=== PATIENT | female | born 1995 | race African-American/Black ===

== ENCOUNTER → 2017-12-25 | Outpatient (CLI) | payer MEDICAID ==
--- NOTE | 2017-12-25 17:31 | Diagnostic Imaging Report ---
PROCEDURE: US OB SINGLE FETUS <14 WKS. TECHNIQUE: Multiple real-time grayscale images were obtained over the gravid uterus in various projections. INDICATION: Uncertain dates. There are no prior studies available for comparison. FINDINGS: There is a gestational sac within the uterus containing a single live fetus. heart motion was noted and a rate of 174 bpm was recorded. The crown-rump length suggests the estimated gestational age is 10 weeks 4 days +/- 1 week. There are no obvious abnormalities evident. The amniotic fluid volume is within normal limits. At this time, it is not certain where the placenta will develop. There is no pelvic mass or free fluid collection noted. Neither ovary is identified. IMPRESSION: 1. There is a single live intrauterine of approximately 10 weeks 4 days gestation +/- 1 week. The EDC is July 19, 2018. 2. There are no obvious abnormalities identified. If a more sensitive evaluation of the anatomy is desired, then a follow-up examination in 10-12 weeks should be obtained. 3. Neither ovary is visualized. Dictated by: Dictated on workstation # [id number]
== END ==
LOC: RAD 12:13
PROVIDERS: ATTEND Family Medicine
DX: Z34.91 Encounter for supervision of normal pregnancy, unspecified, first trimester (principal); Z3A.10 10 weeks gestation of pregnancy
CPT/HCPCS: 76801

== ENCOUNTER 2018-07-26 19:03 | Inpatient (IN) | payer BC, MEDICAID ==
[~2018-07-26] VITALS: Ht 154.9 cm; Wt 88.5 kg
--- NOTE | 2018-07-26 19:00 | NUR ---
CARITO GRAY presented to unit via ambulation from ED, accompanied by family, with c/o INDUCTION. CARITO GRAY weighed, gowned, voided, and to bed. EFHM and TOCO applied, VS taken. CARITO GRAY oriented to bed controls, call light, TV, heat, and A/C controls.
[2018-07-26 19:08] VITALS: BP 123/81
[2018-07-26] MEDS ORDERED: D5 LR IV SOLUTION 1,000 ML IV ONE (19:18)
--- OUTSIDE RECORDS SUMMARY | 2018-07-26 19:19 | XMS REPORT ---
Author Author NYASIA FIERRO Organization [facility] Address [address] [place] [address] Care Team Providers Care Roll Up Helper Name Role Phone NYASIA FIERRO Unavailable PROBLEMS Type Condition ICD9-CM Code [id number] Code Onset Dates Condition Status SNOMED Code Problem Gingivitis K05.10 Active 90538303 ALLERGIES No Information ENCOUNTERS Encounter Location Date Diagnosis [facility] [id number] [place] [address] 19376- 9970 Jul, [facility] [id number] [place] [address] 13131- 2965 Jul, [facility] [id number] [place] [address] 42382- 3744 Jun, [facility] [id number] [place] [address] 54255- 8206 Jun, [facility] [id number] [place] [address] 69568- 0609 May, [facility] [address] [address] 9[address] May, [facility] [address] [place] [address] 08835- 1117 Apr, [facility] [address] [address] 7086 Mar, [facility] [id number] [place] [address] 81732- 5251 Mar, [facility] [address] [address] 9994 Mar, [facility] [id number] [place] [address] 41739- 9593 Feb, Second trimester Z34.92 and 18 weeks gestation of Z3A.18 [facility] [id number] [place] [address] [id number] Feb, Caries K02.9 and Dental examination Z01.20 [facility] [id number] [place] [address] 61111- 6196 Feb, 18 weeks gestation of Z3A.18 and Second trimester Z34.92 [place] [id number] [place] [address] 51882- 7891 Jan, Encounter for immunization Z23 [address] [address]26- 3970 Jan, 14 weeks gestation of Z3A.14 ; Second trimester Z34.92 ; Chlamydial infection A74.9 and Other maternal infectious and parasitic diseases complicating , second trimester O98.812 [place] [id number] [place] [address] 30941- 5678 14 Dec, 2017 [place] [address] 51584- 4349 Dec, 9 weeks gestation of Z3A.09 ; Normal , first Z34.00 ; First trimester Z34.91 and Trichimoniasis A59.9 [place] [id number] [place] [address] 08962- 5150 Dec, Gingivitis K05.10 [place] [id number] [place] [address] 40358- 2150 Dec, Screening, anemia, deficiency, iron Z13.0 [place] [id number] [place] [address] 99509- 3850 Nov, [place] [id number] [place] [address] 01783- 5770 Nov, [place] [address] 23466- 5546 Nov, [facility] [address] [facility] [id number] [place] [address] Nov, IMMUNIZATIONS No Known Immunizations SOCIAL HISTORY Never Assessed REASON FOR VISIT [employer] PLAN OF CARE VITAL SIGNS MEDICATIONS Unknown Medications RESULTS No Results PROCEDURES No Known procedures INSTRUCTIONS MEDICATIONS ADMINISTERED No Known Medications MEDICAL (GENERAL) HISTORY Type Description Date Surgical History No Surgical history information
--- OUTSIDE RECORDS SUMMARY | 2018-07-26 19:19 | XMS REPORT ---
Author Author PATRICIA LOPEZ [facility] Address Unknown Care Team Providers Care Procedures Analyst Name Role Phone PATRICIA LOPEZ Unavailable PROBLEMS Type Condition ICD9-CM Code PAC00-OL Code Onset Dates Condition Status SNOMED Code Problem Gingivitis K05.10 Active 79819240 ALLERGIES No Known Allergies ENCOUNTERS Encounter Location Date Diagnosis [facility] [id number] [place] [address] 84483- 3771 Jul, [facility] [id number] [place] [address] 32273- 1194 Jul, [facility] [id number] [place] [address] 21559- 7884 Jun, [facility] [id number] [place] [address] 74830- 4028 Jun, [facility] [id number] [place] [address] 98325- 1065 May, [facility] [id number] [place] [address] 27972- 6393 May, [facility] [id number] [place] [address] 81735- 2811 Apr, [facility] [id number] [place] [address] 82992- 5943 Mar, [facility] [id number] [place] [address] 35027- 4837 16 Feb, 2018 Second trimester Z34.92 and 18 weeks gestation of Z3A.18 [facility] [address] [phone] 13 Feb, 2018 Caries K02.9 and Dental examination Z01.20 [place] [address] [place] [address] 88730- 8565 13 Feb, 2018 18 weeks gestation of Z3A.18 and Second trimester Z34.92 [place] [id number] [place] [address] 89219- 6016 16 Jan, 2018 Encounter for immunization Z23 [place] [address] 76805- 2418 16 Jan, 2018 14 weeks gestation of Z3A.14 ; Second trimester Z34.92 ; Chlamydial infection A74.9 and Other maternal infectious and parasitic diseases complicating , second trimester O98.812 [place] [id number] [place] [address] 87751- 6320 14 Dec, 2017 [place] [id number] [place] [address] 67499- 2747 10 Dec, 2017 9 weeks gestation of Z3A.09 ; Normal , first Z34.00 ; First trimester Z34.91 and Trichimoniasis A59.9 [place] [id number] [place] [address] 23150- 8428 10 Dec, 2017 Gingivitis K05.10 [place] [id number] [place] [address] 56596- 5670 10 Dec, 2017 Screening, anemia, deficiency, iron Z13.0 [place] [id number] [place] [address] 00843- 3530 Nov, [place] [id number] [place] [address] 09136- 8836 Nov, [place] [address] 79813- 2099 Nov, [place] [id number] [place] [address] 70566- 1766 Nov, IMMUNIZATIONS No Known Immunizations SOCIAL HISTORY Never Assessed REASON FOR VISIT JOSE R/twest PLAN OF CARE Activity Details Follow Up 6 Months Reason:recall VITAL SIGNS Height 62 in 2018-02-16 Blood pressure systolic 112 mmHg 2018-02-16 Blood pressure diastolic 60 mmHg 2018-02-16 MEDICATIONS Medication Instructions Dosage Frequency Start Date End Date Duration Status 28-0.8 MG Orally daily 1 24h Dec, Active RESULTS No Results PROCEDURES Procedure Date Ordered Result Body Site COMP ORAL EVALUATION - NEW/EST PT Feb 16, 2018 RESIN COMPOS - 2 SURFACES POSTERIOR Feb 16, 2018 RESIN COMPOS - 3 SURFACES POSTERIOR Feb 16, 2018 INSTRUCTIONS MEDICATIONS ADMINISTERED No Known Medications MEDICAL (GENERAL) HISTORY Type Description Date Surgical History No Surgical history information
--- OUTSIDE RECORDS SUMMARY | 2018-07-26 19:20 | XMS REPORT ---
Author Author NYASIA FIERRO Organization [facility] Address [address] [place] [address] Care Team Providers Care Miter Operator Name Role Phone NYASIA FIERRO Unavailable PROBLEMS Type Condition ICD9-CM Code NBM28-FK Code Onset Dates Condition Status SNOMED Code Problem Gingivitis K05.10 Active 04629481 ALLERGIES No Information ENCOUNTERS Encounter Location Date Diagnosis [place] [address] 71075- 7431 Jan, [place] [address] 82981- 1229 Dec, [place] [address] 66915- 1166 Dec, 9 weeks gestation of Z3A.09 ; Normal , first Z34.00 ; First trimester Z34.91 and Trichimoniasis A59.9 [place] [address] 94161- 6779 Dec, Gingivitis K05.10 [place] [id number] [place] [address] 01313- 6660 Dec, Screening, anemia, deficiency, iron Z13.0 [place] [address] [id number] [place] [address] 93658- 9858 Nov, [place] [address] 77780- 0153 Nov, [place] [address] 64952- 5120 Nov, [place] [address] 81777- 7220 Nov, IMMUNIZATIONS No Known Immunizations SOCIAL HISTORY Never Assessed REASON FOR VISIT [facility] Hemoglobin PLAN OF CARE VITAL SIGNS MEDICATIONS Unknown Medications RESULTS Name Result Date Reference Range HEMOGLOBIN (IN HOUSE) 2017-12-14 HEMOGLOBIN 13.4 11.5 - 16 gm/dL Lot # [id number] Exp date 21 May 2018 PROCEDURES Procedure Date Ordered Result Body Site HEMOGLOBIN Dec 14, 2017 INSTRUCTIONS MEDICATIONS ADMINISTERED No Known Medications
--- OUTSIDE RECORDS SUMMARY | 2018-07-26 19:20 | XMS REPORT ---
Author Author NYASIA FIERRO [facility] Address [address] [place] [address] Care Team Providers Care Castings Drafter Name Role Phone NYASIA FIERRO Unavailable PROBLEMS ALLERGIES No Information ENCOUNTERS IMMUNIZATIONS No Known Immunizations SOCIAL HISTORY No smoking Hx information available REASON FOR VISIT PLAN OF CARE VITAL SIGNS MEDICATIONS Unknown Medications RESULTS No Results PROCEDURES No Known procedures INSTRUCTIONS MEDICATIONS ADMINISTERED No Known Medications
--- OUTSIDE RECORDS SUMMARY | 2018-07-26 19:20 | XMS REPORT ---
Author Author NYASIA FIERRO Organization [facility] Address [address] [place] [address] Care Team Providers Care Turner Off Name Role Phone NYASIA FIERRO Unavailable PROBLEMS Type Condition ICD9-CM Code ZXM96-XJ Code Onset Dates Condition Status SNOMED Code Problem Gingivitis K05.10 Active [id number] ALLERGIES No Information ENCOUNTERS Encounter Location Date Diagnosis [facility] [id number] [place] [address] 58084- 6170 Jul, [facility] [id number] [place] [address] 56809- 7045 Jul, [facility] [id number] [place] [address] 26406- 9202 Jun, [facility] [id number] [place] [address] 35981- 2935 Jun, [facility] [id number] [place] [address] 25181- 2104 May, [facility] [address], [place] [address]- 3320 May, [facility] [id number] [place] [address] 24443- 4178 Apr, [facility] [address] [place] [address] 27193- 2917 Mar, [facility] [id number] [place] [address] [id number] Feb, [facility] [address] [place] [address] 11535- 6752 Feb, [facility] [id number] [place] [address] 17693- 2122 Jan, Encounter for immunization Z23 [place] [id number] [place] [address] 10188- 7451 16 Jan, 2018 14 weeks gestation of Z3A.14 ; Second trimester Z34.92 ; Chlamydial infection A74.9 and Other maternal infectious and parasitic diseases complicating , second trimester O98.812 [place] [id number] [place] [address] 44254- 6635 14 Dec, 2017 [place] [id number] [place] [address] 82369- 9915 10 Dec, 2017 9 weeks gestation of Z3A.09 ; Normal , first Z34.00 ; First trimester Z34.91 and Trichimoniasis A59.9 [place] [id number] [place] [address] 50349- 7160 10 Dec, 2017 Gingivitis K05.10 [place] [id number] [place] [address] 58229- 0432 10 Dec, 2017 Screening, anemia, deficiency, iron Z13.0 [place] [id number] [place] [address] 15616- 7561 Nov, [place] [id number] [place] [address] 47581- 1029 Nov, [place] [id number] [place] [address] 30047- 1531 Nov, [place] [id number] [place] [address] 29278- 3695 Nov, IMMUNIZATIONS No Known Immunizations SOCIAL HISTORY Never Assessed REASON FOR VISIT OB f/u (Centering) PLAN OF CARE Activity Details Follow Up 4 Weeks Reason: Pending Test SYPHILIS (STATE) Pending Test HIV (STATE) Pending Test HEP B SURFACE ANTIGEN (STATE) Pending Test CBC Pending Test BLOOD TPYE/RH FACTOR Pending Test ANTIBODY SCREEN Pending Test TSH Pending Test RUBELLA IMMUNE STATUS VITAL SIGNS Weight 172.0 lbs 2018-01-19 Blood pressure systolic 109 mmHg 2018-01-19 Blood pressure diastolic 74 mmHg 2018-01-19 MEDICATIONS Medication Instructions Dosage Frequency Start Date End Date Duration Status 28-0.8 MG Orally daily 1 24h 10 Dec, 2017 Active RESULTS No Results PROCEDURES Procedure Date Ordered Result Body Site COMPLETE CBC W/AUTO DIFF WBC Jan 19, 2018 ASSAY THYROID STIM HORMONE Jan 19, 2018 No Charge Jan 19, 2018 VENIPUNCT, ROUTINE* Jan 19, 2018 RUBELLA ANTIBODY Jan 19, 2018 RBC ANTIBODY SCREEN Jan 19, 2018 BLOOD TYPING, ABO Jan 19, 2018 BLOOD TYPING, RH (D) Jan 19, 2018 INSTRUCTIONS MEDICATIONS ADMINISTERED No Known Medications
--- OUTSIDE RECORDS SUMMARY | 2018-07-26 19:20 | XMS REPORT ---
Author Author NYASIA FIERRO Organization [facility] Address [address] [place] [address] Care Team Providers Care Associate Sales Name Role Phone NYASIA FIERRO Unavailable PROBLEMS Type Condition ICD9-CM Code EBO61-TC Code Onset Dates Condition Status SNOMED Code Problem Gingivitis K05.10 Active 17468614 ALLERGIES No Information ENCOUNTERS Encounter Location Date Diagnosis [facility] [id number] [place] [address] 18065- 7354 Jul, [facility] [id number] [place] [address] 90051- 6344 Jul, [facility] [id number] [place] [address] 89758- 4839 Jun, [facility] [id number] [place] [address] 42187- 9720 Jun, [facility] [id number] [place] [address] 31751- 2358 May, [facility] [address], [place] [address]- 2370 May, [facility] [id number] [place] [address] 58706- 0294 Apr, [facility] [address] [place] [address] 50836- 0739 Mar, [facility] [id number] [place] [address] [phone] Feb, [facility] [address] [place] [address] 10142- 9180 Feb, [facility] [id number] [place] [address] 21424- 6473 Jan, Encounter for immunization Z23 [place] [id number] [place] [address] 78398- 5493 16 Jan, 2018 14 weeks gestation of Z3A.14 ; Second trimester Z34.92 ; Chlamydial infection A74.9 and Other maternal infectious and parasitic diseases complicating , second trimester O98.812 [place] [id number] [place] [address] 66910- 3881 14 Dec, 2017 [place] [id number] [place] [address] 34544- 4848 10 Dec, 2017 9 weeks gestation of Z3A.09 ; Normal , first Z34.00 ; First trimester Z34.91 and Trichimoniasis A59.9 [place] [id number] [place] [address] 96014- 7954 10 Dec, 2017 Gingivitis K05.10 [place] [id number] [place] [address] 43177- 5369 10 Dec, 2017 Screening, anemia, deficiency, iron Z13.0 [place] [id number] [place] [address] 24136- 4028 Nov, [place] [id number] [place] [address] 40484- 3881 Nov, [place] [id number] [place] [address] 02621- 3980 Nov, [place] [id number] [place] [address] 13270- 6402 Nov, IMMUNIZATIONS No Known Immunizations SOCIAL HISTORY Never Assessed REASON FOR VISIT [id number] PLAN OF CARE Activity Details Follow Up 4 Weeks Reason: Pending Test PAP REFLEX TO HPV IF ASCUS VITAL SIGNS Height 62 in 2017-12-14 Weight 164 lbs 2017-12-14 Temperature 98.1 degrees Fahrenheit 2017-12-14 Heart Rate 83 bpm 2017-12-14 Respiratory Rate 18 2017-12-14 BMI 29.996 kg/m2 2017-12-14 Blood pressure systolic 126 mmHg 2017-12-14 Blood pressure diastolic 78 mmHg 2017-12-14 MEDICATIONS Medication Instructions Dosage Frequency Start Date End Date Duration Status 1 Active Metronidazole 500 MG Orally Twice a day 1 tablet 12h 10 Dec, 2017 Dec, 7 days Active 28-0.8 MG Orally daily 1 24h Dec, Active RESULTS No Results PROCEDURES Procedure Date Ordered Result Body Site No Charge Dec 14, 2017 [facility] Dec [facility], 2017 URINALYSIS, AUTO, W/O SCOPE Dec 14, 2017 SPECIMEN HANDLING Dec 14, 2017 INSTRUCTIONS MEDICATIONS ADMINISTERED No Known Medications
--- OUTSIDE RECORDS SUMMARY | 2018-07-26 19:20 | XMS REPORT ---
Author Author NYASIA FIERRO Organization [facility] Address [address] [place] [address] Care Team Providers Care Road Mender Name Role Phone NYASIA FIERRO Unavailable PROBLEMS Type Condition ICD9-CM Code NFR27-OK Code Onset Dates Condition Status SNOMED Code Problem Gingivitis K05.10 Active 88597774 ALLERGIES No Known Allergies ENCOUNTERS Encounter Location Date Diagnosis [place] [address] 72218- 8096 Jan, [place] [address] 91489- 0256 Dec, [place] [address] 03833- 5031 Dec, 9 weeks gestation of Z3A.09 ; Normal , first Z34.00 ; First trimester Z34.91 and Trichimoniasis A59.9 [place] [id number] [place] [address] 95782- 6180 Dec, Gingivitis K05.10 [place] [id number] [place] [address] 48043- 5866 Dec, Screening, anemia, deficiency, iron Z13.0 [place] [id number] [place] [address] 52709- 1242 Nov, [place] [address] 16936- 9617 Nov, [place] [id number] [place] [address] 89273- 8783 Nov, [place] [address] 61352- 6656 Nov, IMMUNIZATIONS No Known Immunizations SOCIAL HISTORY Never Assessed REASON FOR VISIT OB HX PLAN OF CARE VITAL SIGNS MEDICATIONS Medication Instructions Dosage Frequency Start Date End Date Duration Status 1 Active RESULTS No Results PROCEDURES No Known procedures INSTRUCTIONS MEDICATIONS ADMINISTERED No Known Medications
--- OUTSIDE RECORDS SUMMARY | 2018-07-26 19:20 | XMS REPORT | Continuity of Care Document ---
Author Organization Unknown Address Unknown Allergies There is no data. Medications There is no data. Problems There is no data. Procedures There is no data. Results Test Result Range CULTURE, GENITAL - 12/14/17 18:05 CULTURE, GENITAL SEE NOTE NRG SUREPATH PAP RFX HPV mRNA E6/E7 - 12/14/17 18:05 CLINICAL INFORMATION: NRG LMP: NRG PREV. PAP: NRG PREV. BX: NRG SOURCE: NRG STATEMENT OF ADEQUACY: NRG INTERPRETATION/RESULT: NRG MAINTENANCE AND REPAIR WORKER: NRG INFECTION: NRG COMMENT NRG RUBELLA IMMUNE STATUS - 01/19/18 11:05 RUBELLA ANTIBODY (IGG) <0.90 index NRG CULTURE, GROUP B STREP (VAGINAL) - 06/30/18 10:14 STREPTOCOCCUS, GROUP B CULTURE SEE NOTE NRG Encounters ACCT No. Visit Date/Time Discharge Status Pt. Type Provider Facility Loc./Unit Complaint [id number] 07/20/2018 09:00:00 07/20/2018 23:59:59 [facility] Outpatient NYASIA FIERRO [facility] [id number] 06/30/2018 09:00:00 Document Registration [id number] 01/19/2018 09:00:00 Document Registration [id number] 12/14/2017 16:20:00 Document Registration
--- OUTSIDE RECORDS SUMMARY | 2018-07-26 19:20 | XMS REPORT ---
Author Author ANTHONY HILLMAN [facility] Address [address] [place] [address] Care Team Providers Care Dining Service Supervisor Name Role Phone ANTHONY HILLMAN Unavailable PROBLEMS Type Condition ICD9-CM Code IZL37-NC Code Onset Dates Condition Status SNOMED Code Problem Gingivitis K05.10 Active [id number] ALLERGIES No Known Allergies ENCOUNTERS Encounter Location Date Diagnosis [place] [address] [address]- 3644 Jan, [place] [address] 30960- 2864 Dec, [place] [address] 98568- 9048 Dec, 9 weeks gestation of Z3A.09 ; Normal , first Z34.00 ; First trimester Z34.91 and Trichimoniasis A59.9 [place] [address] [place] [id number] [place] [address] 51664- 5193 Dec, Gingivitis K05.10 [place] [address] [place] [id number] [place] [address] 64427- 1266 Dec, Screening, anemia, deficiency, iron Z13.0 [place] [address] [place] [id number] [place] [address] 48643- 3026 Nov, [place] [address] 16221- 9283 Nov, [place] [address] 67420- 3220 Nov, [place] [address] 08690- 1102 Nov, IMMUNIZATIONS No Known Immunizations SOCIAL HISTORY Never Assessed REASON FOR VISIT Dental Hygiene PLAN OF CARE Activity Details Follow Up soon Reason:DDS exam/tx VITAL SIGNS MEDICATIONS Medication Instructions Dosage Frequency Start Date End Date Duration Status 1 Active RESULTS No Results PROCEDURES Procedure Date Ordered Result Body Site INTRAORL-PERIAPICAL 1 FILM [id number] Dec 14, 2017 INTRAORL-PERIAPICAL EA ADD FILM Dec 14, 2017 ORAL HYGIENE INSTRUCTIONS Dec 14, 2017 INTRAORL-PERIAPICAL EA ADD FILM Dec 14, 2017 INTRAORL-PERIAPICAL EA ADD FILM Dec 14, 2017 PROPHYLAXIS - ADULT Dec 14, 2017 BITEWINGS - FOUR FILMS Dec 14, 2017 INSTRUCTIONS MEDICATIONS ADMINISTERED No Known Medications
--- OUTSIDE RECORDS SUMMARY | 2018-07-26 19:20 | XMS REPORT ---
Author Author NYASIA FIERRO Organization [facility] Address [address] [place] [address] Care Team Providers Care Biofuels Production Technician Name Role Phone NYASIA FIERRO Unavailable PROBLEMS Type Condition ICD9-CM Code VWD13-OO Code Onset Dates Condition Status SNOMED Code Problem Gingivitis K05.10 Active [id number] ALLERGIES No Information ENCOUNTERS Encounter Location Date Diagnosis [place] [address] [address] Jan, [place] [address] [address] Dec, [place] [address] [address] Dec, 9 weeks gestation of Z3A.09 ; Normal , first Z34.00 ; First trimester Z34.91 and Trichimoniasis A59.9 [place] [address] [address] Dec, Gingivitis K05.10 [place] [address] [address] [place] [id number] [place] [address] Dec, Screening, anemia, deficiency, iron Z13.0 [place] [id number] [place] [id number] [place] [address] Nov, [place] [address] [address] Nov, [place] [address] [address] Nov, [place] [address] [address] Nov, IMMUNIZATIONS No Known Immunizations SOCIAL HISTORY Never Assessed REASON FOR VISIT OB HX PLAN OF CARE VITAL SIGNS MEDICATIONS Unknown Medications RESULTS No Results PROCEDURES No Known procedures INSTRUCTIONS MEDICATIONS ADMINISTERED No Known Medications
[2018-07-26] MEDS: D5 LR IV SOLUTION 1,000 ML IV SCH ×2 (19:35→23:27)
--- NOTE | 2018-07-26 20:17 | NUR ---
Dr. Petersen notified of pt arrival for induction, SVE, and contraction pattern. Orders received to follow oral cytotec protocol for induction process.
[2018-07-26] MEDS ORDERED: PREN1CAP34 PO (20:25)
[2018-07-26] MEDS ORDERED: LACTATED RINGERS 1,000 ML IV SCH (20:35)
[2018-07-26 20:43] LABS: BASOPHILS % (AUTO) 0 % (0-10); EOSINOPHILS # (AUTO) 0.2 10^3/uL (0.0-0.3); EOSINOPHILS % (AUTO) 2 % (0-10); HEMATOCRIT 36 % (35-52); HEMOGLOBIN 11.7 G/DL (11.5-16.0); LYMPHOCYTES # (AUTO) 1.4 X 10^3 (1.0-4.0); LYMPHOCYTES % (AUTO) 18 % (12-44); MEAN CORPUSCULAR HEMOGLOBIN 28 PG (25-34); MEAN CORPUSCULAR HGB CONC 32 G/DL (32-36); MEAN CORPUSCULAR VOLUME 85 FL (80-99); MEAN PLATELET VOLUME 11.4 FL (7.4-10.4); MONOCYTES # (AUTO) 0.6 X 10^3 (0.0-1.0); MONOCYTES % (AUTO) 8 % (0-12); NEUTROPHILS # (AUTO) 5.5 X 10^3 (1.8-7.8); NEUTROPHILS % (AUTO) 72 % (42-75); PLATELET COUNT 324 10^3/uL (130-400); RED CELL DISTRIBUTION WIDTH 13.8 % (10.0-14.5); WHITE BLOOD COUNT 7.7 10^3/uL (4.3-11.0)
[2018-07-26] MEDS ORDERED: MINERAL OIL CONCENTRATE 99.9% 15 ML UDC TOP PRN (20:45)
[2018-07-26] MEDS ORDERED: MISOPROSTOL 100 MCG (CYTOTEC) TAB PO ONE (20:45)
[2018-07-26] MEDS ORDERED: TERBUTALINE INJ 1 MG/ML (BRETHINE) AMP SC PRN (20:45)
[2018-07-26 21:05] VITALS: BP 121/72
[2018-07-26 22:05] VITALS: BP 115/59
[2018-07-26 23:05] VITALS: BP 98/55
[2018-07-27] VITALS (91 sets, daily range): BP systolic 89–148; BP diastolic 51–92
[2018-07-27] MEDS ORDERED: ONDANSETRON 4 MG/2 ML (SDV) Z0FRAN ONE (02:13)
--- NOTE | 2018-07-27 02:13 | NUR ---
Dr. Petersen notified of SVE, contraction pattern, and pt request for epidural. Orders received to give pt. 1mg of stadol IV one time prior to epidural and to palpate contraction strength and if not strong give another dose of cytotec. If adequate contractions hold cytotec until morning and reevaluate.
[2018-07-27] MEDS ORDERED: SUFENTA 0.6MCG/ML BUPIVA 0.125 100 ML ONE (02:27)
[2018-07-27] MEDS ORDERED: ONDANSETRON 4 MG/2 ML (SDV) Z0FRAN IVP ONE (02:30)
[2018-07-27] MEDS ORDERED: BUTORPHANOL INJ 2 MG/ML (STADOL) VIAL IV ONE (02:30)
[2018-07-27] MEDS ORDERED: fentaNYL INJECTION 100 MCG/2 ML AMP ONE (02:50)
[2018-07-27] MEDS ORDERED: BUPIVACAINE 0.25% 30 ML (SENSORCAINE) VIAL ONE (02:50)
[2018-07-27] MEDS ORDERED: LIDOCAINE PF 2% 5 ML (XYLOCAINE) VIAL ONE (02:50)
[2018-07-27] MEDS ORDERED: LACTATED RINGERS 1,000 ML IV ONE ×2 (02:50)
--- NOTE | 2018-07-27 02:50 | NUR ---
Luba Vela CRNA here for epidural placement. Procedure explained, consent reviewed and signed by anesthesia. Questions answered to patient's satisfaction. Time out taken to verify correct patient/procedure. Patient up to side of bed, assisted into sitting position. Betadine prep done x3 and sterile drape applied. Local done, see anesthesia record. Test dose given, see anesthesia record for drug and dosage. Epidural catheter secured in place. Epidural placement complete. Assisted back into bed, monitors adjusted. Epidural dosed, see anesthesia record. Epidural of Sufenta/Bupvicaine @12cc/hr stated per pump. Patient tolerated procedure well.
[2018-07-27] MEDS ORDERED: NALOXONE 0.4 MG/ML 1 ML (NARCAN) VIAL IV PRN (03:00)
[2018-07-27] MEDS ORDERED: ONDANSETRON 4 MG/2 ML (SDV) Z0FRAN IV PRN (03:00)
[2018-07-27] MEDS: CATHETER FLUSH 10 ML SYR IV SCH ×2 (04:29→06:09)
[2018-07-27] MEDS: MISOPROSTOL 100 MCG (CYTOTEC) TAB PO SCH ×2 (04:29→06:09)
[2018-07-27] MEDS: D5 LR IV SOLUTION 1,000 ML IV SCH ×3 (06:12→18:18)
[2018-07-27] MEDS: EPIDURAL (SUFENTA 0.6MCG/ML BUPIVA 0.125%) 100 ML BAG EPI PRN ×2 (10:22→17:18)
[2018-07-27 11:36] LABS: AMPHETAMINE SCREEN, URINE NEGATIVE (NEGATIVE); BARBITURATE SCREEN URINE NEGATIVE (NEGATIVE); BENZODIAZEPINES SCREEN URINE NEGATIVE (NEGATIVE); CANNABINOID SCREEN, URINE POSITIVE (NEGATIVE); COCAINE SCREEN URINE NEGATIVE (NEGATIVE); METHADONE STAT NEGATIVE (NEGATIVE); METHAMPHETAMINE SCREEN URINE S NEGATIVE (NEGATIVE); OPIATE SCREEN URINE NEGATIVE (NEGATIVE); OXYCODONE STAT NEGATIVE (NEGATIVE); PROPOXYPHENE STAT NEGATIVE (NEGATIVE); TRICYCLIC ANTIDEPRESSANTS SCRE NEGATIVE (NEGATIVE)
[2018-07-27] MEDS ORDERED: OXYTOCIN/NORMAL SALINE 500 ML IV SCH (15:48)
--- NOTE | 2018-07-27 17:59 | History & Physical-OB ---
OB - Chief Complaint & HPI Date/Time Date of Admission: Date of Admission: Jul 26, 2018 at 19:03 Date seen by a Provider: Jul 27, 2018 Time Seen by a Provider: 17:40 Chief Complaint/History OB-Reason for Admission/Chief: Induction of Labor Hx : 1 Expected Date of Delivery: Jul 17, 2018 Gestational Age in Weeks: 41 Gestational Age in Days: 2 Indication for induction: post dates History of Labs O+, Ab neg, Rub Non Imm, Chyl + treated and GAVI neg, HIV/RPR/HepB NR, GTT normal , GBS neg Allergies and Home Medications Allergies Coded Allergies: No Known Drug Allergies (Unverified , 07/26/18) Home Medications 148/Iron/Folate 6/Dha 1 Each Capsule, 1 EACH PO DAILY, (Reported) Patient Home Medication List Home Medication List Reviewed: Yes OB - History Hx of Present Care: Yes Ultrasounds: Normal mid trimester US Obstetrical Complications: None Medical Complications: None Obstetrical History Hx : 1 Patient Past Medical History None Social History/Family History HIV/AIDS: No Sexually Transmitted Disease: Yes Alcohol Use: Denies Use Recreational Drug Use: No Immunizations Tetanus Booster (TDap): Less than 5yrs (05/17/18) Rubella: not immune RPR/VDRL: Negative GBS Status: Negative HBsAG: Negative OB - Admission Exam Physical Exam Vitals: Vital Signs 07/27/18 07/27/18 16:15 16:30 Temp 99.7 Pulse 128 Resp 20 B/P (MAP) 124/79 (94) Pulse Ox 99 O2 Delivery Room Air HEENT: NCAT Lungs: Clear Abdomen: Gravid Cervical Dilatation: 6cm Effacement: 75% Station: -2 Membranes: Ruptured Amniotic Fluid: Thin Meconium Heart Rate: 150's Accelerations: Accelerations Present Decelerations: No Decelerations Contractions on Admission: < 5 Minutes Apart Montalvo Scoring Tool (Modified) Dilation (cm): 1-2cm (1) Effacement (%): 51-79% (2) Descent/Station: -2 (1) Cervix Consistency: Soft (2) Cervix Position: Middle/Mid-Position (1) Montalvo Score: 6 Labs Laboratory Tests Test 07/26/18 19:20 07/26/18 19:33 Range/Units Urine Opiates Screen NEGATIVE NEGATIVE Urine Oxycodone Screen NEGATIVE NEGATIVE Urine Methadone Screen NEGATIVE NEGATIVE Urine Propoxyphene Screen NEGATIVE NEGATIVE Urine Barbiturates Screen NEGATIVE NEGATIVE Ur Tricyclic Antidepressants Screen NEGATIVE NEGATIVE Urine Phencyclidine Screen NEGATIVE NEGATIVE Urine Amphetamines Screen NEGATIVE NEGATIVE Urine Methamphetamines Screen NEGATIVE NEGATIVE Urine Benzodiazepines Screen NEGATIVE NEGATIVE Urine Cocaine Screen NEGATIVE NEGATIVE Urine Cannabinoids Screen POSITIVE H NEGATIVE White Blood Count 7.7 4.3-11.0 10^3/uL Red Blood Count 4.24 L 4.35-5.85 10^6/uL Hemoglobin 11.7 11.5-16.0 G/DL Hematocrit 36 35-52 % Mean Corpuscular Volume 85 80-99 FL Mean Corpuscular Hemoglobin 28 25-34 PG Mean Corpuscular Hemoglobin Concent 32 32-36 G/DL Red Cell Distribution Width 13.8 10.0-14.5 % Platelet Count 324 130-400 10^3/uL Mean Platelet Volume 11.4 H 7.4-10.4 FL Neutrophils (%) (Auto) 72 42-75 % Lymphocytes (%) (Auto) 18 12-44 % Monocytes (%) (Auto) 8 0-12 % Eosinophils (%) (Auto) 2 0-10 % Basophils (%) (Auto) 0 0-10 % Neutrophils # (Auto) 5.5 1.8-7.8 X 10^3 Lymphocytes # (Auto) 1.4 1.0-4.0 X 10^3 Monocytes # (Auto) 0.6 0.0-1.0 X 10^3 Eosinophils # (Auto) 0.2 0.0-0.3 10^3/uL Basophils # (Auto) 0.0 0.0-0.1 10^3/uL OB - Assessment/Plan/Diagnosis Assessment Assessment: induction of labor Admission Dx Post Dates 41 week Gestation Primag[place]ida Admission Status: Inpatient Order (span 2 midnights) Reason for Inpatient Admission: Labor Plan Plan: Induction Induction Method: per Pitocin Protocol Other Plan 23 yo G1 @ 41.2 wga here for IOL for post dates - Pit Protocol - GBS neg - Epidural for pain control - Notified Dr Pool of patient GENNANYASIA LAWRENCE MD Jul 27, 2018 17:59
--- NOTE | 2018-07-27 20:15 | NUR ---
Dr Petersen present on unit. Notified doctor of little to no urine output. New orders received for replacement of chu catheter. Notified of latest sve, temp, bp and pulse since 190. Dr to bedside to discuss plan of care with patient.
[2018-07-27 21:01] LABS: CALCIUM 9.4 MG/DL (8.5-10.1); CREATININE SERUM 1.73 MG/DL (0.60-1.30); POTASSIUM 3.9 MMOL/L (3.6-5.0)
--- NOTE | 2018-07-27 21:03 | NUR ---
This RN notified Dr Petersen of all BMP results. New orders for liter normal saline bolus received.
[2018-07-27] MEDS ORDERED: NS IV 1000 ML 1,000 ML IV SCH (21:15)
--- NOTE | 2018-07-27 21:38 | NUR ---
Orders received from Dr Petersen to run urine protein ethnographic materials conservator ratio off urine present in old chu bag.
--- NOTE | 2018-07-27 22:32 | NUR ---
This RN called Dr Petersen to notify of latest sve, little to no urine output even after NS fluid bolus and urine protein internal consultant ratio result. New orders to check cervix at midnight and call Dr with update at that time received.
--- NOTE | 2018-07-27 23:49 | NUR ---
This RN called Dr Petersen to notify of SVE, little to no urine output, temp of 99.9 and patient HR reaching ranging from 100-140's. New orders to check cervix in one hour from most recent check received and to call Dr Peetrsen with update. Addendum: 07/28/18 at 0000 by ALEXANDER FERRER RN This RN notified Dr Petersen of moderate labial swelling present.
[2018-07-28] VITALS (16 sets, daily range): BP systolic 117–148; BP diastolic 69–97
--- NOTE | 2018-07-28 00:39 | NUR ---
Dr Petersen called up to nurses desk after reviewing plan of care with Dr Pool. Orders to call OR staff for primary c section received.
[2018-07-28] MEDS ORDERED: LACTATED RINGERS 1,000 ML IV PRN (00:47)
[2018-07-28] MEDS ORDERED: LIDOCAINE PF 2% 5 ML (XYLOCAINE) VIAL ONE (00:58)
[2018-07-28] MEDS ORDERED: fentaNYL INJECTION 100 MCG/2 ML AMP ONE ×2 (00:58→01:54)
[2018-07-28] MEDS ORDERED: METOCLOPRAMIDE INJ 10 MG/2 ML (REGLAN) IV ONE ×2 (01:00→01:15)
[2018-07-28] MEDS ORDERED: FAMOTIDINE 20MG/2ML IV (PEPCID) IV ONE ×2 (01:00→01:15)
[2018-07-28] MEDS ORDERED: CITRIC ACID/SOB CIT (BICITRA) 30 ML UDC PO ONE ×2 (01:00→01:15)
[2018-07-28] MEDS ORDERED: ceFAZolin 2 GM IV Premixed 50 ML ONE (01:05)
[2018-07-28] MEDS ORDERED: AZITHROMYCIN 500 MG (ZITHROMAX) VIAL ONE (01:08)
[2018-07-28] MEDS ORDERED: NS (IVPB) 250 ML ONE (01:09)
--- NOTE | 2018-07-28 01:14 | Labor Progress Note ---
Labor Progress Note Labor Progress Note Date Seen by Provider: Jul 28, 2018 Time Seen by Provider: 01:10 Subjective: Pt comfortable with epidural. Draining blood tinged urine via chu Objective: SVE: /-2 FHR 165-175, + accels, no decels, mod lauren Maternal temp 100.2 Assessment/Plan: Moises Iverson is a (23 /Para 1 / ,Gestational Age (wks)41 here for IOL for post dates Discussed need for C section due to failure of decent, and maternal tachycardia and increasing temperature curve, Dr Pool here Plan to proceed with C section Vitals - Labs Vital Signs - I&O Vital Signs Date Time Temp Pulse Resp B/P (MAP) Pulse Ox O2 Delivery O2 Flow Rate FiO2 07/27/18 23:45 99.9 115 20 125/78 (94) Room Air 07/27/18 23:30 111 20 129/82 (98) Room Air 07/27/18 23:15 109 20 131/84 (100) Room Air 07/27/18 23:00 100 20 133/87 (102) Room Air 07/27/18 22:45 100 20 133/87 (102) Room Air 07/27/18 22:30 107 20 129/73 (91) 93 Room Air 07/27/18 22:15 96 20 127/80 (96) 100 Room Air 07/27/18 22:00 116 20 127/92 (104) 100 Room Air 07/27/18 21:45 96 20 124/76 (92) 99 Room Air 07/27/18 21:30 103 20 121/77 (92) 100 Room Air 07/27/18 21:15 112 20 128/81 (97) 92 Room Air 07/27/18 21:00 128 20 98 Room Air 07/27/18 20:45 109 20 97 Room Air 07/27/18 20:30 105 20 133/74 (93) 98 Room Air 07/27/18 20:15 95 20 121/78 (92) 98 Room Air 07/27/18 20:00 98.7 100 20 125/81 (96) 98 Room Air 07/27/18 19:45 110 20 131/79 (96) 97 Room Air 07/27/18 19:30 120 20 145/87 (106) 98 Room Air 07/27/18 19:15 116 20 136/80 (98) 96 Room Air 07/27/18 19:00 120 20 100 Room Air 07/27/18 18:45 126 20 140/84 (102) 98 Room Air 07/27/18 18:30 99.6 123 20 98 Room Air 07/27/18 18:15 118 20 148/82 (104) 99 Room Air 07/27/18 18:00 124 20 121/66 (84) 98 Room Air 07/27/18 17:45 100.2 127 20 125/79 (94) 98 Room Air 07/27/18 17:30 118 20 128/83 (98) 98 Room Air 07/27/18 17:15 122 20 134/87 (103) 98 Room Air 07/27/18 17:00 125 20 129/80 (96) 100 Room Air 07/27/18 16:45 116 20 128/84 (99) 98 Room Air 07/27/18 16:30 128 20 124/79 (94) 99 Room Air 07/27/18 16:15 99.7 121 20 122/81 (95) 98 Room Air 07/27/18 16:00 101 20 120/76 (91) 99 Room Air 07/27/18 15:45 109 20 115/63 (80) 98 Room Air 07/27/18 15:30 99 20 118/65 (82) 98 Room Air 07/27/18 15:15 101 20 112/63 (79) 97 Room Air 07/27/18 15:00 99 20 105/62 (76) 98 Room Air 07/27/18 14:45 99 20 109/64 (79) 98 Room Air 07/27/18 14:30 95 20 117/70 (86) 97 Room Air 07/27/18 14:15 100.0 91 20 112/59 (76) 99 Room Air 07/27/18 14:00 106 20 121/74 (90) 100 Room Air 07/27/18 13:45 103 20 125/79 (94) 99 Room Air 07/27/18 13:30 93 20 136/82 (100) 100 Room Air 07/27/18 13:15 96 20 129/72 (91) 99 Room Air 07/27/18 13:00 91 20 132/81 (98) 99 Room Air 07/27/18 12:45 100 20 129/79 (96) 99 Room Air 07/27/18 12:30 100 20 131/80 (97) 99 Room Air 07/27/18 12:15 99.5 101 20 136/85 (102) 99 Room Air 07/27/18 12:00 99 20 119/73 (88) 99 Room Air 07/27/18 11:45 94 20 125/81 (96) 98 Room Air 07/27/18 11:30 95 20 127/72 (90) 99 Room Air 07/27/18 11:15 91 20 125/69 (87) 99 Room Air 07/27/18 11:00 96 20 116/68 (84) 99 Room Air 07/27/18 10:45 93 20 123/69 (87) 98 Room Air 07/27/18 10:30 93 20 116/68 (84) 99 Room Air 07/27/18 10:15 100 20 127/71 (89) 98 Room Air 07/27/18 10:00 101 20 113/74 (87) 98 Room Air 07/27/18 09:45 100 20 117/66 (83) 97 Room Air 07/27/18 09:30 98.3 92 20 111/70 (84) 98 Room Air 07/27/18 09:15 109 20 121/70 (87) 98 Room Air 07/27/18 09:00 95 20 118/71 (87) 98 Room Air 07/27/18 08:45 99 20 127/79 (95) 100 Room Air 07/27/18 08:30 104 20 118/71 (87) 96 Room Air 07/27/18 08:15 100 20 119/72 (88) 97 Room Air 07/27/18 08:00 111 20 120/75 (90) 99 Room Air 07/27/18 07:45 100 20 98/57 (71) 92 Room Air 07/27/18 07:30 99.1 105 20 96/58 (71) 97 Room Air 07/27/18 07:15 100 20 95/57 (70) 98 Room Air 07/27/18 07:00 100 16 96/62 (73) 99 Room Air 07/27/18 06:45 94 16 107/58 (74) 97 Room Air 07/27/18 06:30 98.4 104 16 97 07/27/18 06:15 90 16 119/77 (91) 97 Room Air 07/27/18 06:00 108 16 114/66 (82) 96 Room Air 07/27/18 05:45 108 16 106/59 (75) 96 Room Air 07/27/18 05:30 111 16 98/56 (70) 96 Room Air 07/27/18 05:15 117 16 97/53 (68) 96 Room Air 07/27/18 05:00 98.4 118 16 108/65 (79) 99 Room Air 07/27/18 04:45 80 16 110/71 (84) 99 Room Air 07/27/18 04:30 79 16 109/68 (82) 99 Room Air 07/27/18 04:15 83 16 107/69 (82) 99 Room Air 07/27/18 04:00 97.4 103 16 123/81 (95) 100 Room Air 07/27/18 03:42 82 16 115/73 (87) 100 Room Air 07/27/18 03:37 95 16 113/71 (85) 100 Room Air 07/27/18 03:36 95 16 110/64 (79) 100 Room Air 07/27/18 03:34 81 16 100/60 (73) 100 Room Air 07/27/18 03:32 96 16 96/54 (68) 98 Room Air 07/27/18 03:30 92 16 96/54 (68) 98 Room Air 07/27/18 03:28 91 16 89/51 (64) 98 Room Air 07/27/18 03:22 100 16 105/59 (74) 98 Room Air 07/27/18 03:18 106 16 124/63 (83) 98 Room Air 07/27/18 03:14 101 16 120/71 (87) 99 Room Air 07/27/18 03:08 85 18 129/82 (98) 99 Room Air 07/27/18 03:02 81 18 137/87 (104) 100 Room Air 07/27/18 02:55 78 18 133/87 (102) 100 Room Air 07/27/18 02:05 78 18 132/83 (99) Room Air I & O 07/28/18 07:00 Intake Total 3000 ml Balance 3000 ml Labs Laboratory Tests 07/27/18 20:00: Urine Protein 255H, Urine Creatinine 185H, Urine Protein/Creatinine Ratio 1.38 4/23/19 20:35: Sodium Level 134L, Potassium Level 3.9, Chloride Level 105, Carbon Dioxide Level 17L, Anion Gap 12, Blood Urea Nitrogen 10, Creatinine 1.73H, Estimat Glomerular Filtration Rate 44, BUN/Creatinine Ratio 6, Glucose Level 98, Calcium Level 9.4 NYASIA FIERRO MD Jul 28, 2018 01:14
--- NOTE | 2018-07-28 01:14 | Consultation ---
History of Present Illness History of Present Illness Patient Consulted On(gisela/time) 07/28/18 01:09 Date Seen by Provider: Jul 28, 2018 Time Seen by Provider: 01:00 Reason for Visit: Induces for post maturity History of Present Illness Patient is a 20 year old G1 who was induced for post dates (she is currently 41 2/7 weeks). she has had SROM, cytotec x 1 and oxytocin augmentation with adequate contractions for several hours. she has been 8 cm dilated for at least 3 hours with no progression and she is now febrile and baby is tachycardic. there is also meconium. She has been ruptured for 21 hours. BP has been wnl, but urine output has been decreased and she is nearly anuric. Urine is now bloody. Dr. Petersen has asked me to assess for section due to failure to progress. Allergies and Home Medications Allergies Coded Allergies: No Known Drug Allergies (Unverified , 07/26/18) Home Medications 148/Iron/Folate 6/Dha 1 Each Capsule, 1 EACH PO DAILY, (Reported) Patient Home Medication List Home Medication List Reviewed: Yes Past Zirulvn-Aceuix-Pqvrfo Hx Patient Social History Alcohol Use: Denies Use Recreational Drug Use: No Recent Foreign Travel: No Contact w/Someone Who Travel: No Recent Hopitalizations: No Immunizations Up To Date Tetanus Booster (TDap): Less than 5yrs (05/17/18) Seasonal Allergies Seasonal Allergies: No Past Medical History Surgeries: No Respiratory: No Cardiac: No Neurological: No Expected Date of Delivery: Jul 17, 2018 Hx : 1 Sexually Transmitted Disease: Yes HIV/AIDS: No Genitourinary: No Gastrointestinal: Yes Gastroesophageal Reflux Musculoskeletal: No Endocrine: No HEENT: No Cancer: No Psychosocial: No Integumentary: No Blood Disorders: No Family Medical History Patient reports no known family medical history. Review of Systems-General Constitutional: fever EENTM: see HPI Respiratory: see HPI Cardiovascular: see HPI : Yes Musculoskeletal: no symptoms reported Physical Exam-General Problems Physical Exam Vital Signs Vital Signs - First Documented 07/26/18 07/27/18 19:08 02:55 Temp 98.6 Pulse 112 Resp 16 B/P (MAP) 123/81 (95) Pulse Ox 100 O2 Delivery Room Air Capillary Refill : General Appearance: no apparent distress Respiratory: lungs clear, normal breath sounds, no respiratory distress, no accessory muscle use Cardiovascular: regular rate, rhythm Reflexes: 3+ Bicep (R), 3+ Bicep (L), 3+ Tricep (R), 3+ Tricep (L), 3+ Knee (R) , 3+ Knee (L), 3+ Ankle (R), 3+ Ankle (L) Assessment/Plan Assessment/Plan Admission Diagnosis/Plan 1. Failure to progress 2. 41 2/7 weeks 3. prolonged ROM 4. tachycardia/maternal fever Plan: Primary section. Ancef 2 grams and Azithromycin 1 gram (due to ROM) risks of section include bleeding, infection, injury to bowel, bladder and ureter. Consents were signed. Admission Status: Other Clinical Quality Measures DVT/VTE Risk/Contraindication: Risk Factor Score Per Nursin RFS Level Per Nursing on Admit: 1=Low/No VTE PPX LOS HERNÁNDEZ DO Jul 28, 2018 01:14
[2018-07-28] MEDS ORDERED: ceFAZolin 2 GM IV Premixed 50 ML IV ONE (01:15)
[2018-07-28] MEDS ORDERED: MIDAZOLAM 2 MG/2 ML (VERSED) VIAL ONE (02:05)
[2018-07-28] MEDS ORDERED: ONDANSETRON 4 MG/2 ML (SDV) Z0FRAN ONE (02:18)
[2018-07-28] MEDS ORDERED: BUPIVACAINE 0.5% 30 ML (SENSORCAINE) VIAL ONE (02:18)
[2018-07-28] MEDS ORDERED: DEXAMETHASONE 10 MG/ML (DECADRON) 1 ML VIAL ONE (02:18)
[2018-07-28] MEDS ORDERED: OXYTOCIN/NORMAL SALINE 1,000 ML IV ONE (02:34)
[2018-07-28] MEDS ORDERED: KETOROLAC 30 MG/ML VIAL ONE (02:39)
[2018-07-28] MEDS ORDERED: TETANUS,DIPTH,PERTUSS P/F (BOOSTRIX) 0.5 ML VIAL IM SCH (02:45)
[2018-07-28] MEDS ORDERED: ONDANSETRON 4 MG/2 ML (SDV) Z0FRAN IVP PRN (02:45)
[2018-07-28] MEDS ORDERED: morphine INJ 4 MG/ML 1 ML (VIAL/SYRINGE) IV PRN (02:45)
[2018-07-28] MEDS ORDERED: MEASLES,MUMPS,RUBELLA 1 EA INJ SC SCH (02:45)
--- NOTE | 2018-07-28 02:53 | Cesarean Section Operative ---
Procedure Procedure Note Pre-operative Diagnosis: Moises Iverson is a 23 /Para 1 /0 , Gestational Age 41 2/7 weeks with arrest of dilation, prolonged ROM, maternal fever/chorioamnionitis, meconium Post-operative Diagnosis: same OP presentation, CPD Procedure: Primary low transverse section Physician: LOS HERNÁNDEZ Estimated blood loss: 600 mL Disposition: stable in recovery Findings: Viable femlae , Apgars 9/9, weight 7#3ounces, intact placenta, 3vc, normal appearing uterus, tubes, and ovaries. Thick meconium delee suctioned from nose and oropharynx. Indications:Moises Iverson is a 23 /Para 1 /0 ,Gestational Age 41 2/7 weeks with arrest of dilation, prolonged ROM, maternal fever/chorioamnionitis, meconium Procedure Details: The patient was seen in pre-op and the procedure was discussed with the patient in full, including the risks, benefits, and alternatives. All questions were answered. The patient was taken to the operating room and a time out was performed, verifying patient and procedure. After spinal anesthesia was placed by our anesthesia colleagues, the patient was placed in the dorsal supine with leftward tilt for uterine displacement.~ Her abdomen was then prepped and draped in the typical sterile fashion. A Pfannenstiel skin incision was made using a scalpel and carried down through the underlying fascia. The fascia was incised in the midline and tented up using Bart clamps. On both the inferior and superior fascia side the rectus muscle was dissected off bluntly and sharply using Orantes scissors. The peritoneum was identified and entered bluntly in the midline. This was then stretched laterally using manual strength. After entering the abdominal cavity and confirming lack of intraperitoneal adhesions, a large Clay retractor was placed and the lower uterine segment was visualized. A bladder flap was created with the use of Metzenbaum scissors.~ A scalpel was utilized to make a low transverse uterine incision. Amniotomy was performed with an Allis clamp with return of thick, green meconium fluid. The infant's head was grasped and brought to the level of the incision with assistance of the silastic suction. The head was noted to be coned and in the transverse position (maybe asynclitic) . Fundal pressure was applied and was delivered without difficulty. Mouth and nares were suctioned with delee suction. After the umbilical cord was clamped and cut, the infant was handed off to the pediatric staff. A sample of cord blood was then obtained. Cord gas was sent. The placenta was delivered intact via uterine massage. The uterus was exteriorized and cleared of all clots and debris. The uterine incision was closed using 0 Vicryl in a running locked fashion. A second imbricated layer was placed using 0 Vicryl in a running fashion as well. The uterus was flexed forward and the posterior rectouterine space was inspected and cleared of all clots and debris. Again the hysterotomy site was examined and hemostasis was observed. The bilateral tubes and ovaries appeared normal. The uterus was placed back into the abdominal cavity and abdominal gutters were cleared of all clots and debris. A final check of the uterine incision showed it to be hemostatic. Interceed was placed. The peritoneum was closed using 3-0 Vicryl in a running fashion. The fascia was closed with 0 Vicryl in a running fashion. The subcutaneous space was hemostatic, and irrigated. The subcutaneous space was closed with 3-0 Vicryl in several single interrupted stitches. The skin was then closed using 4-0 Monocryl in a running subcuticular fashion. The skin edges were reapproximated together and were hemostatic. A pressure dressing was applied. All sponge, lap and needle counts were correct at the end of the procedure per nursing. Vitals - Labs Vital Signs - I&O Vital Signs Date Time Temp Pulse Resp B/P (MAP) Pulse Ox O2 Delivery O2 Flow Rate FiO2 07/28/18 01:30 117 20 131/83 (99) 100 Room Air 07/28/18 01:15 131 20 146/90 (108) 100 Room Air 07/28/18 01:00 139 20 100 Room Air 07/28/18 00:52 101.7 07/28/18 00:45 130 20 146/78 (100) 100 Room Air 07/28/18 00:30 125 20 118/84 (95) 100 Room Air 07/28/18 00:15 121 20 118/75 (89) 100 Room Air 07/28/18 00:00 115 20 120/77 (91) Room Air 07/27/18 23:45 99.9 115 20 125/78 (94) Room Air 07/27/18 23:30 111 20 129/82 (98) Room Air 07/27/18 23:15 109 20 131/84 (100) Room Air 07/27/18 23:00 100 20 133/87 (102) Room Air 07/27/18 22:45 100 20 133/87 (102) Room Air 07/27/18 22:30 107 20 129/73 (91) 93 Room Air 07/27/18 22:15 96 20 127/80 (96) 100 Room Air 07/27/18 22:00 116 20 127/92 (104) 100 Room Air 07/27/18 21:45 96 20 124/76 (92) 99 Room Air 07/27/18 21:30 103 20 121/77 (92) 100 Room Air 07/27/18 21:15 112 20 128/81 (97) 92 Room Air 07/27/18 21:00 128 20 98 Room Air 07/27/18 20:45 109 20 97 Room Air 07/27/18 20:30 105 20 133/74 (93) 98 Room Air 07/27/18 20:15 95 20 121/78 (92) 98 Room Air 07/27/18 20:00 98.7 100 20 125/81 (96) 98 Room Air 07/27/18 19:45 110 20 131/79 (96) 97 Room Air 07/27/18 19:30 120 20 145/87 (106) 98 Room Air 07/27/18 19:15 116 20 136/80 (98) 96 Room Air 07/27/18 19:00 120 20 100 Room Air 07/27/18 18:45 126 20 140/84 (102) 98 Room Air 07/27/18 18:30 99.6 123 20 98 Room Air 07/27/18 18:15 118 20 148/82 (104) 99 Room Air 07/27/18 18:00 124 20 121/66 (84) 98 Room Air 07/27/18 17:45 100.2 127 20 125/79 (94) 98 Room Air 07/27/18 17:30 118 20 128/83 (98) 98 Room Air 07/27/18 17:15 122 20 134/87 (103) 98 Room Air 07/27/18 17:00 125 20 129/80 (96) 100 Room Air 07/27/18 16:45 116 20 128/84 (99) 98 Room Air 07/27/18 16:30 128 20 124/79 (94) 99 Room Air 07/27/18 16:15 99.7 121 20 122/81 (95) 98 Room Air 07/27/18 16:00 101 20 120/76 (91) 99 Room Air 07/27/18 15:45 109 20 115/63 (80) 98 Room Air 07/27/18 15:30 99 20 118/65 (82) 98 Room Air 07/27/18 15:15 101 20 112/63 (79) 97 Room Air 07/27/18 15:00 99 20 105/62 (76) 98 Room Air 07/27/18 14:45 99 20 109/64 (79) 98 Room Air 07/27/18 14:30 95 20 117/70 (86) 97 Room Air 07/27/18 14:15 100.0 91 20 112/59 (76) 99 Room Air 07/27/18 14:00 106 20 121/74 (90) 100 Room Air 07/27/18 13:45 103 20 125/79 (94) 99 Room Air 07/27/18 13:30 93 20 136/82 (100) 100 Room Air 07/27/18 13:15 96 20 129/72 (91) 99 Room Air 07/27/18 13:00 91 20 132/81 (98) 99 Room Air 07/27/18 12:45 100 20 129/79 (96) 99 Room Air 07/27/18 12:30 100 20 131/80 (97) 99 Room Air 07/27/18 12:15 99.5 101 20 136/85 (102) 99 Room Air 07/27/18 12:00 99 20 119/73 (88) 99 Room Air 07/27/18 11:45 94 20 125/81 (96) 98 Room Air 07/27/18 11:30 95 20 127/72 (90) 99 Room Air 07/27/18 11:15 91 20 125/69 (87) 99 Room Air 07/27/18 11:00 96 20 116/68 (84) 99 Room Air 07/27/18 10:45 93 20 123/69 (87) 98 Room Air 07/27/18 10:30 93 20 116/68 (84) 99 Room Air 07/27/18 10:15 100 20 127/71 (89) 98 Room Air 07/27/18 10:00 101 20 113/74 (87) 98 Room Air 07/27/18 09:45 100 20 117/66 (83) 97 Room Air 07/27/18 09:30 98.3 92 20 111/70 (84) 98 Room Air 07/27/18 09:15 109 20 121/70 (87) 98 Room Air 07/27/18 09:00 95 20 118/71 (87) 98 Room Air 07/27/18 08:45 99 20 127/79 (95) 100 Room Air 07/27/18 08:30 104 20 118/71 (87) 96 Room Air 07/27/18 08:15 100 20 119/72 (88) 97 Room Air 07/27/18 08:00 111 20 120/75 (90) 99 Room Air 07/27/18 07:45 100 20 98/57 (71) 92 Room Air 07/27/18 07:30 99.1 105 20 96/58 (71) 97 Room Air 07/27/18 07:15 100 20 95/57 (70) 98 Room Air 07/27/18 07:00 100 16 96/62 (73) 99 Room Air 07/27/18 06:45 94 16 107/58 (74) 97 Room Air 07/27/18 06:30 98.4 104 16 97 07/27/18 06:15 90 16 119/77 (91) 97 Room Air 07/27/18 06:00 108 16 114/66 (82) 96 Room Air 07/27/18 05:45 108 16 106/59 (75) 96 Room Air 07/27/18 05:30 111 16 98/56 (70) 96 Room Air 07/27/18 05:15 117 16 97/53 (68) 96 Room Air 07/27/18 05:00 98.4 118 16 108/65 (79) 99 Room Air 07/27/18 04:45 80 16 110/71 (84) 99 Room Air 07/27/18 04:30 79 16 109/68 (82) 99 Room Air 07/27/18 04:15 83 16 107/69 (82) 99 Room Air 07/27/18 04:00 97.4 103 16 123/81 (95) 100 Room Air 07/27/18 03:42 82 16 115/73 (87) 100 Room Air 07/27/18 03:37 95 16 113/71 (85) 100 Room Air 07/27/18 03:36 95 16 110/64 (79) 100 Room Air 07/27/18 03:34 81 16 100/60 (73) 100 Room Air 07/27/18 03:32 96 16 96/54 (68) 98 Room Air 07/27/18 03:30 92 16 96/54 (68) 98 Room Air 07/27/18 03:28 91 16 89/51 (64) 98 Room Air 07/27/18 03:22 100 16 105/59 (74) 98 Room Air 07/27/18 03:18 106 16 124/63 (83) 98 Room Air 07/27/18 03:14 101 16 120/71 (87) 99 Room Air 07/27/18 03:08 85 18 129/82 (98) 99 Room Air 07/27/18 03:02 81 18 137/87 (104) 100 Room Air 07/27/18 02:55 78 18 133/87 (102) 100 Room Air I & O 07/28/18 07:00 Intake Total 3050 ml Output Total 50 ml Balance 3000 ml Labs Laboratory Tests 07/27/18 20:00: Urine Protein 255H, Urine Creatinine 185H, Urine Protein/Creatinine Ratio 1.38 07/27/18 20:35: Sodium Level 134L, Potassium Level 3.9, Chloride Level 105, Carbon Dioxide Level 17L, Anion Gap 12, Blood Urea Nitrogen 10, Creatinine 1.73H, Estimat Glomerular Filtration Rate 44, BUN/Creatinine Ratio 6, Glucose Level 98, Calcium Level 9.4 LOS HERNÁNDEZ DO Jul 28, 2018 02:53
[2018-07-28] MEDS: KETOROLAC 30 MG/ML VIAL IV SCH ×3 (03:15→21:04)
--- NOTE | 2018-07-28 03:38 | NUR ---
Patient transferred via bed to pp room 313, family and patient oriented to call light and room. POC reviewed with patient. No needs or concerns at this time. Will continue to monitor.
[2018-07-28] MEDS: D5 LR IV SOLUTION 1,000 ML IV SCH ×2 (05:04→09:20)
[2018-07-28] MEDS: ACETAMINOPHEN 500 MG TAB (TYLENOL) PO SCH ×3 (05:30→21:13)
[2018-07-28] MEDS ORDERED: CATHETER FLUSH 10 ML SYR IV SCH (06:00)
--- NOTE | 2018-07-28 06:58 | NUR ---
Pericare performed, fresh pads placed. FFU/2, light rubra noted. Hensley draining to dependant drainage. No signs of distress present. No needs or concerns at this time.
[2018-07-28] MEDS ORDERED: NALOXONE 0.4 MG/ML 1 ML (NARCAN) VIAL IV PRN ×2 (08:00)
[2018-07-28] MEDS ORDERED: METOCLOPRAMIDE INJ 10 MG/2 ML (REGLAN) IV PRN (08:00)
[2018-07-28] MEDS ORDERED: diphenhydrAMINE 50 MG/ML INJ (BENADRYL) IV PRN (08:00)
[2018-07-28] MEDS ORDERED: ONDANSETRON 4 MG/2 ML (SDV) Z0FRAN IV PRN (08:00)
--- NOTE | 2018-07-28 08:54 | Postpartum Progress Note ---
Post Op Post-operative Day #0 s/p PLTCS, chorioamnionitis, arrest of dilation/failure to progress, maternal fever, meconium, decreased urinary output (prior to section she had very minimal urinary output and bloody urine). Subjective: Patient is without complaints. She is only a few hours post and has not yet ambulated. Tolerating a regular diet without nausea or vomiting. Normal lochia. Pain is well controlled with oral pain medications. Passing flatus. She has had over 900 ml urine output since surgery. Will decrease fluid and stop after this bag of fluid. Decrease UO is due to obstructed labor. She is breast feeding. Will remove chu. Objective: Laboratory Tests Test 07/27/18 20:00 07/27/18 20:35 Range/Units Urine Protein 255 H 6-12 MG/DL Urine Creatinine 185 H 30-125 MG/DL Urine Protein/Creatinine Ratio 1.38 Sodium Level 134 L 135-145 MMOL/L Potassium Level 3.9 3.6-5.0 MMOL/L Chloride Level 105 98-107 MMOL/L Carbon Dioxide Level 17 L 21-32 MMOL/L Anion Gap 12 5-14 MMOL/L Blood Urea Nitrogen 10 7-18 MG/DL Creatinine 1.73 H 0.60-1.30 MG/DL Estimat Glomerular Filtration Rate 44 BUN/Creatinine Ratio 6 Glucose Level 98 70-105 MG/DL Calcium Level 9.4 8.5-10.1 MG/DL Post labs will be done tomorrow am. Vital Sign - Last 24 Hours 07/27/18 07/27/18 07/27/18 07/27/18 12:30 12:45 13:00 13:15 Pulse 100 100 91 96 Resp 20 20 20 20 B/P (MAP) 131/80 (97) 129/79 (96) 132/81 (98) 129/72 (91) Pulse Ox 99 99 99 99 O2 Delivery Room Air Room Air Room Air Room Air 07/27/18 07/27/18 07/27/18 07/27/18 13:30 13:45 14:00 14:15 Temp 100.0 Pulse 93 103 106 91 Resp 20 20 20 20 B/P (MAP) 136/82 (100) 125/79 (94) 121/74 (90) 112/59 (76) Pulse Ox 100 99 100 99 O2 Delivery Room Air Room Air Room Air Room Air 07/27/18 07/27/18 07/27/18 07/27/18 14:30 14:45 15:00 15:15 Pulse 95 99 99 101 Resp 20 20 20 20 B/P (MAP) 117/70 (86) 109/64 (79) 105/62 (76) 112/63 (79) Pulse Ox 97 98 98 97 O2 Delivery Room Air Room Air Room Air Room Air 07/27/18 07/27/18 07/27/18 07/27/18 15:30 15:45 16:00 16:15 Temp 99.7 Pulse 99 109 101 121 Resp 20 20 20 20 B/P (MAP) 118/65 (82) 115/63 (80) 120/76 (91) 122/81 (95) Pulse Ox 98 98 99 98 O2 Delivery Room Air Room Air Room Air Room Air 07/27/18 07/27/18 07/27/18 07/27/18 16:30 16:45 17:00 17:15 Pulse 128 116 125 122 Resp 20 20 20 20 B/P (MAP) 124/79 (94) 128/84 (99) 129/80 (96) 134/87 (103) Pulse Ox 99 98 100 98 O2 Delivery Room Air Room Air Room Air Room Air 07/27/18 07/27/18 07/27/18 07/27/18 17:30 17:45 18:00 18:15 Temp 100.2 Pulse 118 127 124 118 Resp 20 20 20 20 B/P (MAP) 128/83 (98) 125/79 (94) 121/66 (84) 148/82 (104) Pulse Ox 98 98 98 99 O2 Delivery Room Air Room Air Room Air Room Air 07/27/18 07/27/18 07/27/18 07/27/18 18:30 18:45 19:00 19:15 Temp 99.6 Pulse 123 126 120 116 Resp 20 20 20 20 B/P (MAP) 140/84 (102) 136/80 (98) Pulse Ox 98 98 100 96 O2 Delivery Room Air Room Air Room Air Room Air 07/27/18 07/27/18 07/27/18 07/27/18 19:30 19:45 20:00 20:15 Temp 98.7 Pulse 120 110 100 95 Resp 20 20 20 20 B/P (MAP) 145/87 (106) 131/79 (96) 125/81 (96) 121/78 (92) Pulse Ox 98 97 98 98 O2 Delivery Room Air Room Air Room Air Room Air 07/27/18 07/27/18 07/27/18 07/27/18 20:30 20:45 21:00 21:15 Pulse 105 109 128 112 Resp 20 20 20 20 B/P (MAP) 133/74 (93) 128/81 (97) Pulse Ox 98 97 98 92 O2 Delivery Room Air Room Air Room Air Room Air 07/27/18 07/27/18 07/27/18 07/27/18 21:30 21:45 22:00 22:15 Pulse 103 96 116 96 Resp 20 20 20 20 B/P (MAP) 121/77 (92) 124/76 (92) 127/92 (104) 127/80 (96) Pulse Ox 100 99 100 100 O2 Delivery Room Air Room Air Room Air Room Air 07/27/18 07/27/18 07/27/18 07/27/18 22:30 22:45 23:00 23:15 Pulse 107 100 100 109 Resp 20 20 20 20 B/P (MAP) 129/73 (91) 133/87 (102) 133/87 (102) 131/84 (100) Pulse Ox 93 O2 Delivery Room Air Room Air Room Air Room Air 07/27/18 07/27/18 07/28/18 07/28/18 23:30 23:45 00:00 00:15 Temp 99.9 Pulse 111 115 115 121 Resp 20 20 20 20 B/P (MAP) 129/82 (98) 125/78 (94) 120/77 (91) 118/75 (89) Pulse Ox 100 O2 Delivery Room Air Room Air Room Air Room Air 07/28/18 07/28/18 07/28/18 07/28/18 00:30 00:45 00:52 01:00 Temp 101.7 Pulse 125 130 139 Resp 20 20 20 B/P (MAP) 118/84 (95) 146/78 (100) Pulse Ox 100 100 100 O2 Delivery Room Air Room Air Room Air 07/28/18 07/28/18 07/28/18 07/28/18 01:15 01:30 02:38 02:52 Temp 97.9 97.6 Pulse 131 117 Resp 20 20 20 24 B/P (MAP) 146/90 (108) 131/83 (99) Pulse Ox 100 100 100 100 O2 Delivery Room Air Room Air Nasal Cannula Nasal Cannula O2 Flow Rate 2 2 07/28/18 07/28/18 07/28/18 07/28/18 03:07 03:22 04:00 04:30 Temp 98.1 97.9 97.9 98.0 Pulse 102 89 Resp 20 20 18 18 B/P (MAP) 138/88 (105) 134/88 (103) Pulse Ox 98 99 97 98 O2 Delivery Room Air Room Air Room Air Room Air 07/28/18 05:05 O2 Delivery Room Air Intake and Output 07/27/18 07/27/18 07/28/18 15:00 23:00 07:00 Intake Total 1000 ml 2000 ml 550 ml Output Total 270 ml Balance 1000 ml 2000 ml 280 ml Physical Exam: General - Alert and oriented, no apparent distress Abdomen - Soft, appropriately tender to palpation, non-distended, fundus firm at umbilicus Incision - clean, dry and intact; no erythema or induration, no drainage Extremities - 2+ edema, negative Renee's bilaterally Assessment: 1. post-operative day # 0 status post PLTCS. Recovering well, hemodynamically stable 2. Decreased anemia due to obstructed labor now resolved. Plan: Routine post-operative care. Encourage breast feeding. Encourage ambulation. VTE prophylaxis: SCDs. Ferrous sulfate supplementation. Plan for discharge Thursday (day 2) Vitals - Labs Vital Signs - I&O Vital Signs Date Time Temp Pulse Resp B/P (MAP) Pulse Ox O2 Delivery O2 Flow Rate FiO2 07/28/18 05:05 Room Air 07/28/18 04:30 98.0 89 18 134/88 (103) 98 Room Air 07/28/18 04:00 97.9 102 18 138/88 (105) 97 Room Air 07/28/18 03:22 97.9 20 99 Room Air 07/28/18 03:07 98.1 20 98 Room Air 07/28/18 02:52 97.6 24 100 Nasal Cannula 2 07/28/18 02:38 97.9 20 100 Nasal Cannula 2 07/28/18 01:30 117 20 131/83 (99) 100 Room Air 07/28/18 01:15 131 20 146/90 (108) 100 Room Air 07/28/18 01:00 139 20 100 Room Air 07/28/18 00:52 101.7 07/28/18 00:45 130 20 146/78 (100) 100 Room Air 07/28/18 00:30 125 20 118/84 (95) 100 Room Air 07/28/18 00:15 121 20 118/75 (89) 100 Room Air 07/28/18 00:00 115 20 120/77 (91) Room Air 07/27/18 23:45 99.9 115 20 125/78 (94) Room Air 07/27/18 23:30 111 20 129/82 (98) Room Air 07/27/18 23:15 109 20 131/84 (100) Room Air 07/27/18 23:00 100 20 133/87 (102) Room Air 07/27/18 22:45 100 20 133/87 (102) Room Air 07/27/18 22:30 107 20 129/73 (91) 93 Room Air 07/27/18 22:15 96 20 127/80 (96) 100 Room Air 07/27/18 22:00 116 20 127/92 (104) 100 Room Air 07/27/18 21:45 96 20 124/76 (92) 99 Room Air 07/27/18 21:30 103 20 121/77 (92) 100 Room Air 07/27/18 21:15 112 20 128/81 (97) 92 Room Air 07/27/18 21:00 128 20 98 Room Air 07/27/18 20:45 109 20 97 Room Air 07/27/18 20:30 105 20 133/74 (93) 98 Room Air 07/27/18 20:15 95 20 121/78 (92) 98 Room Air 07/27/18 20:00 98.7 100 20 125/81 (96) 98 Room Air 07/27/18 19:45 110 20 131/79 (96) 97 Room Air 07/27/18 19:30 120 20 145/87 (106) 98 Room Air 07/27/18 19:15 116 20 136/80 (98) 96 Room Air 07/27/18 19:00 120 20 100 Room Air 07/27/18 18:45 126 20 140/84 (102) 98 Room Air 07/27/18 18:30 99.6 123 20 98 Room Air 07/27/18 18:15 118 20 148/82 (104) 99 Room Air 07/27/18 18:00 124 20 121/66 (84) 98 Room Air 07/27/18 17:45 100.2 127 20 125/79 (94) 98 Room Air 07/27/18 17:30 118 20 128/83 (98) 98 Room Air 07/27/18 17:15 122 20 134/87 (103) 98 Room Air 07/27/18 17:00 125 20 129/80 (96) 100 Room Air 07/27/18 16:45 116 20 128/84 (99) 98 Room Air 07/27/18 16:30 128 20 124/79 (94) 99 Room Air 07/27/18 16:15 99.7 121 20 122/81 (95) 98 Room Air 07/27/18 16:00 101 20 120/76 (91) 99 Room Air 07/27/18 15:45 109 20 115/63 (80) 98 Room Air 07/27/18 15:30 99 20 118/65 (82) 98 Room Air 07/27/18 15:15 101 20 112/63 (79) 97 Room Air 07/27/18 15:00 99 20 105/62 (76) 98 Room Air 07/27/18 14:45 99 20 109/64 (79) 98 Room Air 07/27/18 14:30 95 20 117/70 (86) 97 Room Air 07/27/18 14:15 100.0 91 20 112/59 (76) 99 Room Air 07/27/18 14:00 106 20 121/74 (90) 100 Room Air 07/27/18 13:45 103 20 125/79 (94) 99 Room Air 07/27/18 13:30 93 20 136/82 (100) 100 Room Air 07/27/18 13:15 96 20 129/72 (91) 99 Room Air 07/27/18 13:00 91 20 132/81 (98) 99 Room Air 07/27/18 12:45 100 20 129/79 (96) 99 Room Air 07/27/18 12:30 100 20 131/80 (97) 99 Room Air 07/27/18 12:15 99.5 101 20 136/85 (102) 99 Room Air 07/27/18 12:00 99 20 119/73 (88) 99 Room Air 07/27/18 11:45 94 20 125/81 (96) 98 Room Air 07/27/18 11:30 95 20 127/72 (90) 99 Room Air 07/27/18 11:15 91 20 125/69 (87) 99 Room Air 07/27/18 11:00 96 20 116/68 (84) 99 Room Air 07/27/18 10:45 93 20 123/69 (87) 98 Room Air 07/27/18 10:30 93 20 116/68 (84) 99 Room Air 07/27/18 10:15 100 20 127/71 (89) 98 Room Air 07/27/18 10:00 101 20 113/74 (87) 98 Room Air 07/27/18 09:45 100 20 117/66 (83) 97 Room Air 07/27/18 09:30 98.3 92 20 111/70 (84) 98 Room Air 07/27/18 09:15 109 20 121/70 (87) 98 Room Air 07/27/18 09:00 95 20 118/71 (87) 98 Room Air I & O 07/28/18 07:00 Intake Total 3550 ml Output Total 270 ml Balance 3280 ml Labs Laboratory Tests 07/27/18 20:00: Urine Protein 255H, Urine Creatinine 185H, Urine Protein/Creatinine Ratio 1.38 07/27/18 20:35: Sodium Level 134L, Potassium Level 3.9, Chloride Level 105, Carbon Dioxide Level 17L, Anion Gap 12, Blood Urea Nitrogen 10, Creatinine 1.73H, Estimat Glomerular Filtration Rate 44, BUN/Creatinine Ratio 6, Glucose Level 98, Calcium Level 9.4 LOS HERNÁNDEZ DO Jul 28, 2018 08:54
[2018-07-28] MEDS ORDERED: AZITHROMYCIN INJECTION 500 MG in NS (IVPB) 250 ML IV SCH (09:00)
[2018-07-28] MEDS: DOCUSATE SODIUM 100 MG (COLACE) CAP PO SCH ×2 (09:18→21:13)
--- NOTE | 2018-07-28 14:30 | NUR ---
Encouraged to get out of bed and to void. Tolerated activity well - voided 400ml. Assisted pt with gown, panties and shani care. Encouraged pt to ambulate in hallway this evening. Family supportive and at bedside.
[2018-07-28] MEDS: IBUPROFEN 600 MG (MOTRIN) TAB PO SCH ×3 (16:13→21:14)
--- NOTE | 2018-07-28 16:45 | NUR ---
Report received from Melinda Sharma RN
--- NOTE | 2018-07-28 17:25 | NUR ---
Rn called to mothers room. mother voiced concern for that remains in nsy for iv start. grandmother voiced concern about rn's not discussing with pt plan of care for infant and why has been in nsy for so long. Discussed with pt and grandmother what this rn new regarding and iv attempts with no success and going to receive IM injections at this time. Rn apologized to mother and family regarding communication delay's.
--- NOTE | 2018-07-28 18:40 | NUR ---
Assisted up to void. pericare and pad changed. Ambulates in halls accompanied by rn. back to room and to bed.
[2018-07-29] MEDS: KETOROLAC 30 MG/ML VIAL IV SCH (01:38)
[2018-07-29] MEDS: IBUPROFEN 600 MG (MOTRIN) TAB PO SCH ×4 (03:23→21:30)
[2018-07-29 03:24] VITALS: BP 108/78
[2018-07-29] MEDS: ACETAMINOPHEN 500 MG TAB (TYLENOL) PO SCH ×4 (03:24→21:30)
[2018-07-29] MEDS ORDERED: MILK OF MAGNESIA 400 MG/5 ML 30 ML UDC PO PRN (05:00)
[2018-07-29] MEDS ORDERED: CLINDAMYCIN 900 MG/50 ML IVPB 50 ML IV ONE (06:21)
[2018-07-29 06:22] LABS: BASOPHILS % (AUTO) 0 % (0-10); EOSINOPHILS # (AUTO) 0.2 10^3/uL (0.0-0.3); EOSINOPHILS % (AUTO) 1 % (0-10); HEMATOCRIT 29 % (35-52); HEMOGLOBIN 9.4 G/DL (11.5-16.0); LYMPHOCYTES # (AUTO) 2.5 X 10^3 (1.0-4.0); LYMPHOCYTES % (AUTO) 11 % (12-44); MEAN CORPUSCULAR HEMOGLOBIN 28 PG (25-34); MEAN CORPUSCULAR HGB CONC 33 G/DL (32-36); MEAN CORPUSCULAR VOLUME 87 FL (80-99); MEAN PLATELET VOLUME 11.5 FL (7.4-10.4); MONOCYTES # (AUTO) 1.2 X 10^3 (0.0-1.0); MONOCYTES % (AUTO) 5 % (0-12); NEUTROPHILS # (AUTO) 19.3 X 10^3 (1.8-7.8); NEUTROPHILS % (AUTO) 84 % (42-75); PLATELET COUNT 300 10^3/uL (130-400); RED CELL DISTRIBUTION WIDTH 14.3 % (10.0-14.5); WHITE BLOOD COUNT 23.1 10^3/uL (4.3-11.0)
--- NOTE | 2018-07-29 07:04 | Anesthesia-Regional Post-Op ---
Regional Patient Condition Mental Status: Alert, Oriented x3 Circulation: Same as Pre-Op Headache: Absent Sensation: Full Recovery Motor Block: Absent Post Op Complications Complications None Follow Up Care/Instructions Patient Instructions None needed. Anesthesia/Patient Condition Patient is doing well, no complaints, stable vital signs, no apparent adverse anesthesia problems. No complications reported per nursing. [place] [facility] [place] BAO Iniguez CRNA Jul 29, 2018 07:04
[2018-07-29 07:13] LABS: EOSINOPHILS % (MANUAL) 2 %; LYMPHOCYTES % (MANUAL) 10 %; MONOCYTES % (MANUAL) 3 %; NEUTROPHILS % (MANUAL) 85 %
[2018-07-29] MEDS: DOCUSATE SODIUM 100 MG (COLACE) CAP PO SCH ×2 (09:05→21:30)
[2018-07-29 09:08] VITALS: BP 118/73
--- NOTE | 2018-07-29 09:08 | NUR ---
Initial shift assessment completed, see interventions for further. abd incision AZUL. Dermabond intact. pt denies c/o's @ time. scheduled Motrin and Tylenol given, see eMar for further. in arms, appropriate bonding noted.
[2018-07-29 16:11] VITALS: BP 132/65
--- NOTE | 2018-07-29 16:40 | NUR ---
ambulating in hallways.
[2018-07-29 21:30] VITALS: BP 125/89
[2018-07-30 03:56] VITALS: BP 124/83
[2018-07-30] MEDS: IBUPROFEN 600 MG (MOTRIN) TAB PO SCH ×3 (03:56→22:41)
[2018-07-30] MEDS: ACETAMINOPHEN 500 MG TAB (TYLENOL) PO SCH ×3 (03:56→16:25)
[2018-07-30 06:53] LABS: BASOPHILS % (AUTO) 0 % (0-10); EOSINOPHILS # (AUTO) 0.4 10^3/uL (0.0-0.3); EOSINOPHILS % (AUTO) 3 % (0-10); HEMATOCRIT 27 % (35-52); HEMOGLOBIN 8.8 G/DL (11.5-16.0); LYMPHOCYTES # (AUTO) 2.3 X 10^3 (1.0-4.0); LYMPHOCYTES % (AUTO) 19 % (12-44); MEAN CORPUSCULAR HEMOGLOBIN 28 PG (25-34); MEAN CORPUSCULAR HGB CONC 32 G/DL (32-36); MEAN CORPUSCULAR VOLUME 87 FL (80-99); MEAN PLATELET VOLUME 11.2 FL (7.4-10.4); MONOCYTES # (AUTO) 0.4 X 10^3 (0.0-1.0); MONOCYTES % (AUTO) 4 % (0-12); NEUTROPHILS % (AUTO) 74 % (42-75); PLATELET COUNT 326 10^3/uL (130-400); WHITE BLOOD COUNT 12.1 10^3/uL (4.3-11.0)
[2018-07-30 09:20] VITALS: BP 128/89
[2018-07-30] MEDS: DOCUSATE SODIUM 100 MG (COLACE) CAP PO SCH ×2 (10:12→22:41)
--- NOTE | 2018-07-30 10:47 | Postpartum Progress Note ---
Post Op Post-operative Day #2/ s/p {PLTCS. Baby to be DC tomorros Subjective: Patient is without complaints. Ambulating, voiding after chu removed. Tolerating a regular diet without nausea or vomiting. Normal lochia. Pain is well controlled with oral pain medications. Passing flatus. breast feeding. [] Objective: Laboratory Tests Test 07/30/18 06:30 Range/Units White Blood Count 12.1 H 4.3-11.0 10^3/uL Red Blood Count 3.13 L 4.35-5.85 10^6/uL Hemoglobin 8.8 L 11.5-16.0 G/DL Hematocrit 27 L 35-52 % Mean Corpuscular Volume 87 80-99 FL Mean Corpuscular Hemoglobin 28 25-34 PG Mean Corpuscular Hemoglobin Concent 32 32-36 G/DL Red Cell Distribution Width 14.0 10.0-14.5 % Platelet Count 326 130-400 10^3/uL Mean Platelet Volume 11.2 H 7.4-10.4 FL Neutrophils (%) (Auto) 74 42-75 % Lymphocytes (%) (Auto) 19 12-44 % Monocytes (%) (Auto) 4 0-12 % Eosinophils (%) (Auto) 3 0-10 % Basophils (%) (Auto) 0 0-10 % Neutrophils # (Auto) 9.0 H 1.8-7.8 X 10^3 Lymphocytes # (Auto) 2.3 1.0-4.0 X 10^3 Monocytes # (Auto) 0.4 0.0-1.0 X 10^3 Eosinophils # (Auto) 0.4 H 0.0-0.3 10^3/uL Basophils # (Auto) 0.0 0.0-0.1 10^3/uL 07/30/18 03:56 Temp 99.0 Pulse 83 Resp 18 B/P (MAP) 124/83 (97) Pulse Ox 98 O2 Delivery Room Air Physical Exam: General - Alert and oriented, no apparent distress Abdomen - Soft, appropriately tender to palpation, non-distended, fundus firm at umbilicus Incision - clean, dry and intact; no erythema or induration, no drainage Extremities - no edema, negative Renee's bilaterally [] Assessment: [] post-operative day # [], status post []. Recovering well, hemodynamically stable Acute blood loss anemia [] Plan: Routine post-operative care. Encourage breast feeding. Encourage ambulation. VTE prophylaxis: SCDs. Ferrous sulfate supplementation. Plan for discharge [] Vitals - Labs Vital Signs - I&O Vital Signs Date Time Temp Pulse Resp B/P (MAP) Pulse Ox O2 Delivery O2 Flow Rate FiO2 07/30/18 03:56 99.0 83 18 124/83 (97) 98 Room Air 07/29/18 21:30 99.0 76 18 125/89 (101) 99 Room Air 07/29/18 16:11 100.0 80 18 132/65 (87) 98 Room Air I & O 07/30/18 07:00 Intake Total 800 ml Balance 800 ml Labs Laboratory Tests 07/30/18 06:30: White Blood Count 12.1H, Red Blood Count 3.13L, Hemoglobin 8.8L, Hematocrit 27L , Mean Corpuscular Volume 87, Mean Corpuscular Hemoglobin 28, Mean Corpuscular Hemoglobin Concent 32, Red Cell Distribution Width 14.0, Platelet Count 326, Mean Platelet Volume 11.2H, Neutrophils (%) (Auto) 74, Lymphocytes (%) (Auto) 19 , Monocytes (%) (Auto) 4, Eosinophils (%) (Auto) 3, Basophils (%) (Auto) 0, Neutrophils # (Auto) 9.0H, Lymphocytes # (Auto) 2.3, Monocytes # (Auto) 0.4, Eosinophils # (Auto) 0.4H, Basophils # (Auto) 0.0 LOS HERNÁNDEZ DO Jul 30, 2018 10:47
[2018-07-30] MEDS ORDERED: DOCU100C37 PO (12:00)
[2018-07-30] MEDS ORDERED: OXC5T PO (12:00)
[2018-07-30] MEDS ORDERED: ACET-77 PO (12:00)
[2018-07-30] MEDS ORDERED: IBUP-844 PO (12:00)
--- NOTE | 2018-07-30 12:04 | Discharge Inst-Women's Service ---
Discharge Inst-Women's Serv Depart Medication/Instructions New, Converted or Re-Newed RX: RX on Chart Final Diagnosis post dates arrest of dilation chorioamnionitis (maternal fever) meconium Consults/Follow Up Additional Follow Up: Yes ([address] Pool and 6 weeks with Nicola) Activity Activity: Activity as Tolerated Driving Instructions: No Driving for 1 Week NO SMOKING: NO SMOKING Nothing Inside Vagina: No Douching, No [place], No Tampons Diet Discharge Diet: No Restrictions Symptoms to Report to : Swelling Increased, Bleeding Excessive, Pain Increased, Fever Over 101 Degrees F, Vaginal Bleeding Increase, Vaginal Discharge Foul For Any Problems or Questions: Contact Your Physician Skin/Wound Care Infection Signs and Symptoms: Increased Redness, Foul Odor of Wound, Increased Drainage, Skin Itchy or Has a Rash, Increased Swelling, Temperature Above 101 F Operative Area Clean and Dry: Keep Incision Clean/Dry Stitches/Krystle/Dermabond: Dermabond Bathing Instructions: LOS Bartholomew DO Jul 30, 2018 12:04
[2018-07-30] MEDS ORDERED: FERR-84 PO (12:42)
--- NOTE | 2018-07-30 14:20 | NUR ---
Report rec'd from Elver Sharma RN. Cares assumed at this time.
--- NOTE | 2018-07-30 15:17 | NUR ---
Up and about in room. Edema of feet and legs improved from day of delivery. Pt to be discharged tomorrow since infant if required to stay another day. Pt plans to leave hospital and go back to . One week appointment made for incisional check with Dr Pool.
[2018-07-30 16:23] VITALS: BP 122/71
[2018-07-30 20:00] VITALS: BP 130/95
[2018-07-30 22:35] VITALS: BP 126/88
[2018-07-31] MEDS: ACETAMINOPHEN 500 MG TAB (TYLENOL) PO SCH ×2 (01:55→10:44)
[2018-07-31] MEDS: IBUPROFEN 600 MG (MOTRIN) TAB PO SCH ×2 (04:08→10:43)
[2018-07-31 04:09] VITALS: BP 135/74
[2018-07-31 07:55] VITALS: BP 121/74
--- NOTE | 2018-07-31 08:40 | NUR ---
DR. HERRERA HERE TO SEE PT.
--- NOTE | 2018-07-31 08:43 | Progress Note-Standard ---
Standard Progress Note Progress Notes/Assess & Plan Date Seen by a Provider: Jul 31, 2018 Time Seen by a Provider: 08:42 Progress/Assessment & Plan This patient is without complaint. She is ambulating, voiding, tolerating oral intake well has good pain control. She denies chest pain, denies shortness of breath, denies nausea vomiting, and denies headache. Patient is requesting discharge home. Vital Signs Date Time Temp Pulse Resp B/P (MAP) Pulse Ox O2 Delivery O2 Flow Rate FiO2 07/31/18 07:55 99.0 83 12 121/74 (90) 96 Room Air 07/31/18 04:09 98.5 79 18 135/74 (94) 98 07/30/18 22:35 98.7 88 18 126/88 (101) 98 07/30/18 20:00 98.0 78 18 130/95 (107) 100 07/30/18 16:23 98.3 75 18 122/71 (88) 99 Room Air 07/30/18 09:20 98.3 75 20 128/89 (102) 100 Vital signs are stable. Patient is afebrile. The abdomen is benign. Extreme show no clubbing cyanosis. Homans sign. Assessment and plan status post primary doing well. Plans for discharge home with follow-up in clinic PATTI HERRERA MD Jul 31, 2018 08:43
--- NOTE | 2018-07-31 08:55 | NUR ---
PT SITTING UP IN THE CHAIR, MORE BABY WIPES PROVIDED PER REQUEST, SHOWER SET UP. SISTER AT THE BEDSIDE.
[2018-07-31] MEDS: DOCUSATE SODIUM 100 MG (COLACE) CAP PO SCH (10:43)
--- NOTE | 2018-07-31 10:50 | NUR ---
PT UP IN ROOM. MEDS GIVEN; SEE EMAR FOR FURTHER. INITIAL SHIFT ASSESSMENT COMPLETED; SEE INTERVENTION FOR FURTHER. FAMILY AT THE BEDSIDE. AWAITING DISCHARGE. NO NEEDS VOICED AT THIS TIME.
--- NOTE | 2018-07-31 11:13 | NUR ---
DISCHARGE PAPERS PROVIDED AND REVIEWED WITH PT, PT VERBALIZES UNDERSTANDING AND DENIES ANY NEEDS OR QUESTIONS AT THIS TIME. PAPER SIGNED.
--- NOTE | 2018-07-31 11:56 | NUR ---
PT DISCHARGED FROM -313 TO [facility]ORY IN STABLE CONDITION ACC BY Freddy ALEJO RN AND FAMILY.
== END 2018-07-31 11:56 | disposition home or self-care (01) | DRG 786 ==
LOC: LDRP 19:03
PROVIDERS: ADMIT Family Medicine; ATTEND Family Medicine
PROC: 10D00Z1 Extraction of Products of Conception, Low, Open Approach (ICD-10-PCS; principal; 2018-07-28 01:34)
DX: O48.0 Post-term pregnancy (principal); O41.1230 Chorioamnionitis, third trimester, not applicable or unspecified; O90.81 Anemia of the puerperium; D62 Acute posthemorrhagic anemia; O98.313 Other infections with a predominantly sexual mode of transmission complicating pregnancy, third trimester; A56.8 Sexually transmitted chlamydial infection of other sites; O99.323 Drug use complicating pregnancy, third trimester; F12.90 Cannabis use, unspecified, uncomplicated; O42.02 Full-term premature rupture of membranes, onset of labor within 24 hours of rupture; O33.9 Maternal care for disproportion, unspecified; O76 Abnormality in fetal heart rate and rhythm complicating labor and delivery; O77.0 Labor and delivery complicated by meconium in amniotic fluid; Z3A.41 41 weeks gestation of pregnancy; Z37.0 Single live birth
CPT/HCPCS: 36415; 80048; 80306; 82570; 84156; 85007; 85025; 85027; 86850; 86900; 86901; 90707; 94664